=== PATIENT | female | born 1935 | race Caucasian/White ===

== ENCOUNTER 2024-03-26 18:12 | Emergency (ER) | payer BC, OTHER ==
[~2024-03-26] VITALS: Ht 154.9 cm; Wt 54.4 kg
[2024-03-26 18:22] VITALS: BP_SYST 148; PULSE 78; RESP 18; TEMP 97.8; O2SAT 98
[2024-03-26] MEDS: LIDOCAINE 1% 10 MG/ML, 20 ML MDV INJ ONE (19:12)
[2024-03-26] MEDS: DIPHTH,PERTUSS(ACELL),TET VAC 0.5 ML VIAL (Tdap) I.M. ONE (19:16)
[2024-03-26] MEDS: LORazepam 2 MG/ML VIAL IM ONE (23:00)
[2024-03-27 00:57] VITALS: BP_SYST 129; PULSE 75; RESP 17; TEMP 97.9; O2SAT 97
== END 2024-03-27 00:57 | disposition home or self-care (01) ==
LOC: SED 18:12
DX: S01.81XA Laceration without foreign body of other part of head, initial encounter (principal); F03.911 Unspecified dementia, unspecified severity, with agitation; Z23 Encounter for immunization; Z88.8 Allergy status to other drugs, medicaments and biological substances; W18.39XA Other fall on same level, initial encounter; Y93.89 Activity, other specified; Y92.89 Other specified places as the place of occurrence of the external cause; Y99.8 Other external cause status
CPT/HCPCS: 99285; 70450; 96374; 72125; 90715; 90471; 12013; J2003; J2060